=== PATIENT | male | born 1950 | race Caucasian/White ===

== ENCOUNTER 2021-06-06 22:09 | Inpatient (IN) | payer MEDICARE, OTHER ==
[~2021-06-06] VITALS: Ht 175.3 cm; Wt 80.3 kg
[~2021-06-06 22:09] MED LIST: FLEXERIL 10 MG10 MG PO; HYGROTON TAB 2525 MG PO; LIVALO1 MG PO; PRINIVIL5 MG PO
[2021-06-06 22:49] LABS: HEMOGLOBIN 15.8 gm/dl (14.0-17.5); RED BLOOD COUNT 5.09 M/UL (4.20-5.50); WHITE BLOOD COUNT 19.5 K/UL (4.5-11.0)
[2021-06-06 23:24] LABS: BUN/CREATININE RATIO 25 (0-10)
[2021-06-07] MEDS ORDERED: TIZANIDINE HCL2 MG PO (10:02)
[2021-06-07] MEDS ORDERED: LISINOPRIL10 MG PO (10:03)
[2021-06-07] MEDS ORDERED: CRESTOR 10 MG T10 MG PO (10:04)
[2021-06-07] MEDS ORDERED: VITAMIN D350 MC3 PO (10:05)
[2021-06-07] MEDS ORDERED: GRAPE SEED EXTR50 MG PO (10:06)
[2021-06-07] MEDS ORDERED: SAW PALMETTO C1 EACH PO (10:07)
[2021-06-07] MEDS ORDERED: GINKGO BILOBA120 M1 PO (10:07)
[2021-06-08 04:04] LABS: RED BLOOD COUNT 4.62 M/UL (4.20-5.50); WHITE BLOOD COUNT 21.5 K/UL (4.5-11.0)
[2021-06-08 04:21] LABS: BUN/CREATININE RATIO 20 (0-10)
[2021-06-09 07:11] LABS: BUN/CREATININE RATIO 22 (0-10)
[2021-06-09 07:12] LABS: HEMOGLOBIN 11.6 gm/dl (14.0-17.5); RED BLOOD COUNT 3.93 M/UL (4.20-5.50); WHITE BLOOD COUNT 13.9 K/UL (4.5-11.0)
[2021-06-10 06:52] LABS: HEMOGLOBIN 10.9 gm/dl (14.0-17.5); RED BLOOD COUNT 3.67 M/UL (4.20-5.50); WHITE BLOOD COUNT 11.5 K/UL (4.5-11.0)
[2021-06-10 07:02] LABS: BUN/CREATININE RATIO 21 (0-10)
[2021-06-11 12:22] LABS: HEMOGLOBIN 11.5 gm/dl (14.0-17.5); RED BLOOD COUNT 3.77 M/UL (4.20-5.50); WHITE BLOOD COUNT 12.8 K/UL (4.5-11.0)
[2021-06-11 12:54] LABS: BUN/CREATININE RATIO 16 (0-10)
[2021-06-12 06:14] LABS: HEMOGLOBIN 10.9 gm/dl (14.0-17.5); RED BLOOD COUNT 3.69 M/UL (4.20-5.50); WHITE BLOOD COUNT 12.4 K/UL (4.5-11.0)
[2021-06-12 06:42] LABS: BUN/CREATININE RATIO 13 (0-10)
[2021-06-13] MEDS ORDERED: PERCOCET 5-3251 EACH PO (15:41)
== END 2021-06-13 16:09 | disposition home or self-care (01) | DRG 871 ==
LOC: ER1 22:09 → M/S 06-07 01:05 → CDU 06-07 01:05 → M/S 06-07 07:59
PROVIDERS: Internal Medicine; Physician Assistant; ADMIT Internal Medicine
DX: A41.9 Sepsis, unspecified organism (principal); K85.10 Biliary acute pancreatitis without necrosis or infection; E87.2 Acidosis; R17 Unspecified jaundice; R18.8 Other ascites; E11.65 Type 2 diabetes mellitus with hyperglycemia; K76.0 Fatty (change of) liver, not elsewhere classified; Z20.822 Contact with and (suspected) exposure to COVID-19; E86.0 Dehydration; I10 Essential (primary) hypertension; Z90.49 Acquired absence of other specified parts of digestive tract; Z98.890 Other specified postprocedural states; Z79.899 Other long term (current) drug therapy
CPT/HCPCS: 36415; 71045; 74018; 74181; 76705; 80053; 80076; 81001; 82550; 82553; 82962; 83605; 83690; 84132; 84478; 84484; 85025; 93005; 96374; 96375; 96376; 99285; C9113; J0360; J1170; J1650; J2270; J2405; J2543; J2550; J7030; Q9967; U0002

== ENCOUNTER → 2021-08-05 | Outpatient (CLI) | payer MEDICARE, OTHER ==
[~2021-08-05] MED LIST changes: +CRESTOR 10 MG T10 MG PO; +GINKGO BILOBA120 M1 PO; +GRAPE SEED EXTR50 MG PO; +LISINOPRIL10 MG PO; +PERCOCET 5-3251 EACH PO; +SAW PALMETTO C1 EACH PO; +TIZANIDINE HCL2 MG PO; +VITAMIN D350 MC3 PO
== END ==
LOC: RAD 10:13
DX: M25.551 Pain in right hip (principal); M25.552 Pain in left hip; M54.50 Low back pain, unspecified; G89.29 Other chronic pain; M51.36 Other intervertebral disc degeneration, lumbar region; M47.816 Spondylosis without myelopathy or radiculopathy, lumbar region; M16.0 Bilateral primary osteoarthritis of hip
CPT/HCPCS: 72110; 73522